=== PATIENT | male | born 1965 | race Caucasian/White ===

== ENCOUNTER 2017-10-31 19:46 | Emergency (ER) | payer MEDICAID ==
[~2017-10-31] VITALS: Ht 167.6 cm; Wt 67.5 kg
[2017-10-31] MEDS ORDERED: HYDR-3965 PO (20:14)
[2017-10-31] MEDS ORDERED: ONDA4TAB9 PO ×2 (20:14→20:27)
[2017-10-31] MEDS ORDERED: HYDROcodone/acetaminophen 10/325mg tab PO ONE (20:25)
[2017-10-31] MEDS ORDERED: ondansetron 4mg rapidly disintigrating tab PO ONE (20:25)
[2017-10-31] MEDS ORDERED: HYDR-565 PO (20:27)
[2017-10-31 20:48] VITALS: BP 153/102
== END 2017-10-31 20:52 | disposition home or self-care (01) ==
LOC: ER 19:47
DX: K02.9 Dental caries, unspecified (principal); K00.7 Teething syndrome
CPT/HCPCS: 99283